=== PATIENT | male | born 1940 | race Two or more races ===

== ENCOUNTER 2022-03-06 16:20 | Inpatient (IN) | payer OTHER ==
[~2022-03-06] VITALS: Ht 167.6 cm; Wt 99.8 kg
[2022-03-06] MEDS ORDERED: ATORVASTATIN CA40 MG PO (17:35)
[2022-03-06] MEDS ORDERED: CILOSTAZOL100 MG PO (17:35)
[2022-03-06] MEDS ORDERED: CARVEDILOL25 MG (17:35)
[2022-03-06] MEDS ORDERED: HYDRALAZINE HCL50 MG PO (17:35)
[2022-03-06] MEDS ORDERED: FINASTERIDE5 MG PO (17:36)
[2022-03-06] MEDS ORDERED: PLAVIX75 MG PO (17:36)
[2022-03-08] MEDS ORDERED: FUROSEMIDE20 MG (10:02)
[2022-03-08] MEDS ORDERED: LEVOTHYROXINE112 MCG (10:02)
[2022-03-08] MEDS ORDERED: RANOLAZINE ER500 MG (10:04)
[2022-03-08] MEDS ORDERED: VASOTEC20 MG (10:05)
== END 2022-03-24 20:48 | disposition home or self-care (01) | DRG 281 ==
LOC: ER 16:20 → SURH 23:40 → ICU-2 23:40 → SURH 03-07 00:44 → ICU-2 03-07 01:47 → ICU 03-08 17:42 → MEDJ 03-18 21:23
PROVIDERS: ADMIT Internal Medicine; ATTEND Internal Medicine
PROC: B24BYZZ Ultrasonography of Heart with Aorta using Other Contrast (ICD-10-PCS; 2022-03-07)
PROC: B345ZZZ Ultrasonography of Bilateral Common Carotid Arteries (ICD-10-PCS; 2022-03-07)
PROC: B030ZZZ Magnetic Resonance Imaging (MRI) of Brain (ICD-10-PCS; 2022-03-08)
PROC: BT4JZZZ Ultrasonography of Kidneys and Bladder (ICD-10-PCS; 2022-03-10)
PROC: 02HV33Z Insertion of Infusion Device into Superior Vena Cava, Percutaneous Approach (ICD-10-PCS; 2022-03-15)
PROC: 30243N1 Transfusion of Nonautologous Red Blood Cells into Central Vein, Percutaneous Approach (ICD-10-PCS; principal; 2022-03-20)
PROC: BW28ZZZ Computerized Tomography (CT Scan) of Head (ICD-10-PCS; 2022-03-21)
DX: I16.1 Hypertensive emergency (principal); I21.A1 Myocardial infarction type 2; F05 Delirium due to known physiological condition; N17.8 Other acute kidney failure; I67.4 Hypertensive encephalopathy; I13.10 Hypertensive heart and chronic kidney disease without heart failure, with stage 1 through stage 4 chronic kidney disease, or unspecified chronic kidney disease; E11.22 Type 2 diabetes mellitus with diabetic chronic kidney disease; N18.9 Chronic kidney disease, unspecified; E11.621 Type 2 diabetes mellitus with foot ulcer; L97.522 Non-pressure chronic ulcer of other part of left foot with fat layer exposed; B96.5 Pseudomonas (aeruginosa) (mallei) (pseudomallei) as the cause of diseases classified elsewhere; B95.62 Methicillin resistant Staphylococcus aureus infection as the cause of diseases classified elsewhere; E11.65 Type 2 diabetes mellitus with hyperglycemia; I25.10 Atherosclerotic heart disease of native coronary artery without angina pectoris; D64.89 Other specified anemias; E66.01 Morbid (severe) obesity due to excess calories; E03.9 Hypothyroidism, unspecified; Z68.35 Body mass index [BMI] 35.0-35.9, adult; Z79.4 Long term (current) use of insulin
CPT/HCPCS: 70544

== ENCOUNTER 2022-03-26 21:41 | Inpatient (IN) | payer OTHER ==
[~2022-03-26] VITALS: Ht 172.7 cm; Wt 86.2 kg
[~2022-03-26 21:41] MED LIST: ATORVASTATIN CA40 MG PO; CARVEDILOL25 MG; CILOSTAZOL100 MG PO; FINASTERIDE5 MG PO; FUROSEMIDE20 MG; HYDRALAZINE HCL50 MG PO; LEVOTHYROXINE112 MCG; PLAVIX75 MG PO; RANOLAZINE ER500 MG; VASOTEC20 MG
--- NOTE | 2022-03-26 21:53 | NUR ---
MASCULINO ALERTA Y ORIENTADO X3 REFIERE DIFICULTAD RESPIRATORIA DESDE EL MOUNA DE [place]. SE REALIZA EKG Y SE PRESENTA A BRAULIO MARCANTONI Y SE UBICA.
--- NOTE | 2022-03-26 23:27 | NUR ---
SE ORIENTA PTE Y FAMILIAR SOBRE TX A SEGUIR, EL CUAL REFIEREN ENTENDER. SE COLECTAN MUESTRAS UTILIZANDO MEDIDAS ASEPTICAS Y SE ADM. [facility]ICA.
--- NOTE | 2022-03-27 02:47 | NUR ---
RN ADORNO ADMINISTRA MEDICAMENTOS [facility] MEDICA. LA MISMA KIRA MUESTRAS DE MARY BAJO MEDIDAS ASEPTICAS E INSERTA LUCIO A GRAVEDAD PRESENTANDO ORINA AMARILLA CLOUDY Y KIRA U/C. SE NOTIFICA PLACA PORTABLE A PERSONAL DE RADIOGRAFIA.
--- NOTE | 2022-03-27 07:15 | NUR ---
PTE ALERTA,ESTABLE Y ORIENTADO.SE EDUCA SOBRE EL TRATAMIENTO QUE RECIBIRA EN EL HOSPITAL Y TOYIN REFIERE ENTENDER.
[2022-04-10] MEDS ORDERED: IPRATROPIU0.2 MG/1 M IH (15:46)
[2022-04-10] MEDS ORDERED: DIPHENHIST25 MG PO (15:46)
[2022-04-10] MEDS ORDERED: PLAVIX75 MG PO (15:47)
[2022-04-10] MEDS ORDERED: CARVEDILOL25 MG PO (15:48)
[2022-04-10] MEDS ORDERED: ATORVASTATIN CA40 MG PO (15:48)
[2022-04-10] MEDS ORDERED: CARdura 2MG TABLET PO (15:49)
[2022-04-10] MEDS ORDERED: VASOTEC20 MG PO (15:49)
[2022-04-10] MEDS ORDERED: PROCARDIA XL90 MG PO (15:49)
[2022-04-10] MEDS ORDERED: ISOSORBIDE MONO30 MG PO (15:50)
[2022-04-10] MEDS ORDERED: RANOLAZINE ER500 MG PO (15:51)
[2022-04-10] MEDS ORDERED: HYDRALAZINE HCL50 MG PO (15:51)
[2022-04-10] MEDS ORDERED: ST. JOSEPH ASPI81 M2 PO (15:52)
[2022-04-10] MEDS ORDERED: BUDESONIDE0.5 MG/2 M IH (15:52)
[2022-04-10] MEDS ORDERED: TUSSIN MUC100 MG/5 M PO (15:53)
[2022-04-10] MEDS ORDERED: INTESTINEX680 M1 PO (15:53)
[2022-04-10] MEDS ORDERED: PANTOPRAZOLE SO40 MG PO (15:53)
[2022-04-10] MEDS ORDERED: HUMULIN N100 UNIT/2 SUBCUTANEO ×2 (15:54)
[2022-04-10] MEDS ORDERED: LEVOTHYROXINE112 MCG PO (15:55)
[2022-04-10] MEDS ORDERED: FINASTERIDE5 MG PO (15:55)
[2022-04-10] MEDS ORDERED: RISPERDAL1 MG PO (16:06)
[2022-04-10] MEDS ORDERED: FUROSEMIDE20 MG PO (16:06)
== END 2022-04-10 21:46 | disposition home or self-care (01) | DRG 291 ==
LOC: ER 21:41 → MEDJ 03-27 14:35
PROVIDERS: ADMIT Internal Medicine; ATTEND Internal Medicine
PROC: B246ZZZ Ultrasonography of Right and Left Heart (ICD-10-PCS; principal; 2022-03-27)
PROC: BB24ZZZ Computerized Tomography (CT Scan) of Bilateral Lungs (ICD-10-PCS; 2022-03-27)
PROC: 3E0F7GC Introduction of Other Therapeutic Substance into Respiratory Tract, Via Natural or Artificial Opening (ICD-10-PCS; 2022-03-27)
DX: I50.33 Acute on chronic diastolic (congestive) heart failure (principal); J18.9 Pneumonia, unspecified organism; I13.0 Hypertensive heart and chronic kidney disease with heart failure and stage 1 through stage 4 chronic kidney disease, or unspecified chronic kidney disease; N39.0 Urinary tract infection, site not specified; R44.3 Hallucinations, unspecified; N18.9 Chronic kidney disease, unspecified; E11.22 Type 2 diabetes mellitus with diabetic chronic kidney disease; Z79.4 Long term (current) use of insulin; B96.29 Other Escherichia coli [E. coli] as the cause of diseases classified elsewhere; E11.51 Type 2 diabetes mellitus with diabetic peripheral angiopathy without gangrene; I65.23 Occlusion and stenosis of bilateral carotid arteries; L97.529 Non-pressure chronic ulcer of other part of left foot with unspecified severity; E11.621 Type 2 diabetes mellitus with foot ulcer